=== PATIENT | male | born 2000 | race Two or more races ===

== ENCOUNTER 2022-09-22 17:49 | Emergency (ER) | payer OTHER ==
--- NOTE | 2022-09-22 18:52 | XRAY Report ---
PROCEDURE: Shoulder 3 View RT INDICATIONS: possible dislocation TECHNIQUE: 3 views of the shoulder were acquired. COMPARISON: None. FINDINGS: Bones: No fractures or dislocations. No suspicious bony lesions. Visualized ribs appear intact. Soft tissues: No suspicious soft tissue calcifications. The visualized lung demonstrates a normal a ppearance. IMPRESSION: Negative for fracture or dislocation. Reviewed by: Josh Mcmanus MD on 09/22/2022 5:50 PM [place] Approved by: Josh Mcmanus MD on 09/22/2022 5:50 PM [place] Station ID: [id number]
--- NOTE | 2022-09-22 20:20 | ED Physician Documentation ---
PD HPI UPPER EXT INJURY - Stated complaint Stated Complaint: R SHOULDER INJ - Chief complaint Chief Complaint: Ext Problem - History obtained from History obtained from: Patient - History of Present Illness Location: Right, Shoulder Pain level max: 5 Pain level now: 0 Associated symptoms: No: Weakness, Numbness, Tingling, Swelling, Discolored - Additonal information Additional information: 22-year-old male states that he has had multiple recurrent right shoulder dislocations. He states that he feels like his shoulder dislocated at home and has now relocated itself. He is currently asymptomatic. Denies any injuries or falls. Nothing makes it better or worse. Patient is right handed Review of Systems Constitutional: denies: Fever PD PAST MEDICAL HISTORY - Past Medical History Past Medical History: Yes Musculoskeletal: Other Other Past Medical History: R shoulder dislocations - Past Surgical History Past Surgical History: No - Present Medications Home Medications: Ambulatory Orders Medication Instructions Recorded Confirmed No Known Home Medications 09/22/22 09/22/22 - Allergies Allergies/Adverse Reactions: Allergies Allergy/AdvReac Type Severity Reaction Status Date / Time No Known Drug Allergies Allergy Verified 09/22/22 17:57 - Social History Does the pt smoke?: No Smoking Status: Current every day smoker Does the pt drink ETOH?: Yes Does the pt have substance abuse?: No - Immunizations Immunizations are current?: Yes - POLST Patient has POLST: No PD ED PE NORMAL - Vitals Vital signs reviewed: Yes - General General: Alert and oriented X 3, No acute distress - Derm Derm: Warm and dry - Extremities Extremities: No deformity, No tenderness to palpate, Other (R shoulder - NVI. no deformity. FROM without pain. ) - Neuro Neuro: Alert and oriented X 3 Results - Vitals Vitals: Vital Signs - 24 hr 09/22/22 09/22/22 17:54 20:25 Temperature 36.5 C 36.9 C Heart Rate 107 H 84 Respiratory 18 16 Rate Blood Pressure 157/80 H 140/81 H O2 Saturation 98 98 Oxygen O2 Source Room air - Rads (name of study) R shoulder xray Radiology: Final report received, See rad report PD Medical Decision Making - ED course Complexity details: reviewed results, considered differential, d/w patient ED course: Patient states that his shoulder dislocated prior to arrival. It relocated prior to arrival. He is asymptomatic. Placed in a sling for comfort. Ill have him follow up with his primary care provider for further care. X-ray does not show any acute abnormalities. Patient has no pain and is using the arm freely.Patient counseled regarding signs and symptoms for which I believe an urgent reevaluation would be necessary. Patient with good understanding of and agreement to plan and is comfortable going home at this time. Departure - Departure Disposition: 01 Home, Self Care Clinical Impression: Recurrent dislocation, right shoulder Condition: Good Instructions: ED Dislocation Shoulder Redu, ED Sling Follow-Up: your,doctor in 1 week [Other] Comments: Wear the sling for the next 2 to 3 days. No heavy lifting with the right arm. Please follow-up with your doctor for further care. Return if you worsen. Your x-ray does not show any acute abnormalities today. Forms: Activity restrictions Discharge Date/Time: 09/22/22 20:25
[2022-09-22 20:25] VITALS: BP 140/81
== END 2022-09-22 20:25 | disposition home or self-care (01) ==
LOC: ED 17:49
DX: M24.411 Recurrent dislocation, right shoulder (principal); F17.200 Nicotine dependence, unspecified, uncomplicated
CPT/HCPCS: 99282; 99283

== ENCOUNTER 2022-10-10 11:25 | Outpatient (CLI) | payer OTHER ==
[2022-10-10] MEDS ORDERED: GADOBUTROL 7.5 MMOL/7.5 ML VIAL ONE (11:37)
[2022-10-10] MEDS ORDERED: LIDOCAINE-MPF 1% 5 ML VIAL ONE (11:37)
--- NOTE | 2022-10-10 13:42 | XRAY Report ---
PROCEDURE: Arthrogram Needle Placement INDICATIONS: RECURRENT DISLOCATIONS OF SHOULDER CONTRAST: 1 mL Isovue-300, 0.15 mL Gadavist FLUOROSCOPY TIME: 000.0 TECHNIQUE: The indications, alternatives, benefits, risks, and complications of the procedure were explained to the patient. Written informed consent was obtained and placed in the chart. The shoulder was examin ed fluoroscopically and a site for needle placement chosen for entry into the glenohumeral joint from an anterior approach. The skin was prepped and draped in the usual fashion, and 1% lidocaine infilt rated from skin down to joint capsule. A spinal needle was inserted into the glenohumeral joint, and a small amount of iodinated contrast media injected to confirm intra-articular placement of the need le tip. This was followed by approximately 12 mL dilute solution of a gadolinium containing MR contr ast agent. The needle was removed and a dressing was applied. The patient was given postprocedural instructions and sent to the MR suite for MR imaging. FINDINGS: A single fluoroscopic spot image demonstrates intra-articular location of injected iodinated contrast . IMPRESSION: Successful fluoroscopically guided administration of dilute Gadolinium solution into the shoulder whit nt for MR arthrogram. Reviewed by: Martín Johnston MD on 10/10/2022 1:41 PM PDT Approved by: Martín Johnston MD on 10/10/2022 1:41 PM PDT Station ID: [id number]
[2022-10-10] MEDS ORDERED: GADOBUTROL 7.5 MMOL/7.5 ML VIAL IVP ONE (14:36)
[2022-10-10] MEDS ORDERED: LIDOCAINE-MPF 1% 5 ML VIAL SUBQ STA (15:01)
--- NOTE | 2022-10-10 15:52 | MRI Report ---
PROCEDURE: ARTHROGRAM SHOULDER - RT INDICATIONS: RECURRENT DISLOCATIONS OF SHOULDER CONTRAST: Dilute intra-articular gadolinium contrast TECHNIQUE: After the administration of 12 mL of dilute intra-articular Gadolinium contrast, oblique coronal T1 a nd T2 spin echo with fat saturation, oblique sagittal T1 spin echo with and without fat saturation, o blique sagittal T2 fast spin echo with fat saturation, axial T1 spin echo with fat saturation through the shoulder. COMPARISON: Fluoroscopic images from arthrogram injection performed [facility] the [facility] day[facility] FINDINGS: Image quality: Excellent. Rotator cuff: Most recent is and infraspinatus tendinosis. The teres minor and subscapularis tendons are intact. There is no significant rotator cuff muscle atrophy. Bones and bursae: No acute trabecular bone injury or fracture. No significant Hill-Sachs lesion is se en. The glenoid is intact. No focal glenohumeral cartilage defect. Mild degenerative changes are seen at the acromioclavicular joint. There is a trace amount of noncommunicating subacromial/subdeltoid b ursal fluid. No glenohumeral intra-articular loose body. Capsule and soft tissues: Mildly diminutive appearance of the anterior-inferior labrum may be second hitesh to prior contusion and/or chronic nondisplaced tearing. No focal uptake of intra-articular contra st material is seen to suggest an acute tear. Mildly increased T1-weighted signal is seen within the proximal biceps long head tendon and the rotator interval, which may be related to the arthrogram inj ection versus partial tearing. Glenohumeral ligaments are intact. IMPRESSION: 1.Mildly diminutive and irregular appearance of the anterior-inferior labrum may represent prior labr al contusion and/or mild chronic tearing. No uptake of intra-articular contrast material is seen to s uggest an acute labral tear. 2.[id number] signal within the with proximal biceps long head tendon is favored to be related t o the arthrogram injection rather than partial tearing, but correlation with symptoms physical exam f indings is recommended. 3.Mild supraspinatus and infraspinatus tendinosis. No significant rotator cuff tendon tear. 4.No acute trabecular bone injury. No significant Hill-Sachs lesion or loss of glenoid bone stock. No focal glenohumeral cartilage defect. 5.Mild acromioclavicular joint osteoarthrosis. Reviewed by: Martín Johnston MD on 10/10/2022 3:50 PM PDT Approved by: Martín Johnston MD on 10/10/2022 3:50 PM PDT Station ID: [id number]
== END 2022-10-10 11:26 | disposition home or self-care (01) ==
LOC: DI 11:25
PROVIDERS: ATTEND Student in an Organized Health Care Education/Training Program
DX: M24.411 Recurrent dislocation, right shoulder (principal); M19.011 Primary osteoarthritis, right shoulder; M75.91 Shoulder lesion, unspecified, right shoulder
CPT/HCPCS: 23350; 73222; 77002; A9585; Q9965